=== PATIENT | female | born 1945 | race Caucasian/White ===

== ENCOUNTER → 2018-03-09 13:08 | Outpatient (CLI) | payer MEDICARE, OTHER, SELFPAY ==
--- NOTE | 2018-03-09 | DI.MRI.S_ITS ---
PROCEDURE: MR LUMBAR SPINE WO CON INDICATIONS: LUMBAR SPINE PAIN TECHNIQUE: Noncontrast sagittal T1 spin echo and T2 fast echo, sagittal STIR, axial T1 and T2 fast spin echo through the lumbar spine. In cases with scoliosis, additional coronal T2 fast spin echo may be performed. COMPARISON: [facility], MR, L-SPINE WITHOUT CONTRAST, 07/11/2016, 13:08. FINDINGS: Image quality: Excellent. Alignment and Curvature: Straightening of the normal lumbar lordosis. Bone Marrow: Marrow is of normal overall signal. No acute vertebral body compression fractures. Endplate degenerative signal changes present Spinal Cord: Conus medullaris terminates at the L2-L3 level. Visualized cord demonstrates normal signal and size. Paraspinous Soft Tissues: No paravertebral masses. T2 hyperintense presumed left renal cyst although this is technically nonspecific. T11-T12: Posterior disc bulge with mild canal narrowing. L1-L2: Facet arthropathy. No definite canal stenosis. No foraminal narrowing. L2-L3: Minimal broad-based posterior disc bulge and facet disease. Minimal canal narrowing. No foraminal stenosis. L3-L4: Broad-based posterior disc bulge and bilateral facet. Mild canal stenosis. Moderate left and mild right foraminal stenosis. No interval change L4-L5: Left paracentral disc extrusion (with superior extension to the level of the mid L4 vertebral body) which appears increased in size since the prior study, and bilateral facet disease. This appears to abut however not displace the left L5 nerve root. Mild to moderate left-sided canal narrowing has progressed slightly. Moderate bilateral foraminal stenoses. No interval change L5-S1: Broad-based posterior disc bulge and bilateral facet arthropathy and mild canal narrowing. Moderate left and severe right foraminal stenoses, grossly unchanged. IMPRESSION: Interval increase in L4-L5 left paracentral disc protrusion as detailed above. This appears to abut however not displace the left L5 nerve root. Please correlate to clinical exam findings. Otherwise, grossly unchanged examination since 07/11/16. Dictated by: Best Chaudhry M.D. on 03/09/2018 at 14:34 Approved by: Best Chaudhry M.D. on 03/09/2018 at 14:45
== END ==
PROVIDERS: Family Provider Internal Medicine; PCP Family Medicine; Visit Provider Physical Medicine & Rehabilitation Pain Medicine
DX: M54.5 Low back pain (principal); M51.26 Other intervertebral disc displacement, lumbar region
CPT/HCPCS: 72148

== ENCOUNTER 2019-03-27 17:20 | Emergency (ER) | payer OTHER, MEDICARE, SELFPAY ==
[2019-03-27 17:28] VITALS: PULSE 69; RESP 20; TEMP 36.4; O2SAT 98
[2019-03-27 17:32] VITALS: BP 159/59
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
[2019-03-27 20:13] VITALS: BP 148/72; PULSE 69; RESP 18; O2SAT 100
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
== END 2019-03-27 20:14 | disposition home or self-care (01) ==
PROVIDERS: Emergency Provider Nurse Practitioner Family; Family Provider Internal Medicine; PCP Family Medicine
DX: M25.561 Pain in right knee (principal); M25.562 Pain in left knee; S60.221A Contusion of right hand, initial encounter; V43.62XA Car passenger injured in collision with other type car in traffic accident, initial encounter
CPT/HCPCS: 73562; 99282; 99283

== ENCOUNTER → 2020-02-13 15:27 | Outpatient (CLI) | payer MEDICARE, OTHER, SELFPAY ==
--- NOTE | 2020-02-13 15:33 | DI.ECHO.S_ITS ---
[facility] [place] +---------+ [facility] +---------+ : : [address] : : : : [id number] : : : : Phone: [phone]+ Echocardiogram Report + + :Name: ELYSE WOOD Study Date: 02/13/2020 Height: 63 in : :[facility] Weight: 180 lb : : Gender: Female BSA: 1.8 m2 : :: 1945 Age: 74 yrs BP: 150/63 mmHg: :Reason For Study: Palpitations : : Performed By: Gisell Whitaker : :Referring: PUNEET LUNA A : + + Interpretation Summary Normal sinus rhythm. Normal LV size, wall thickness, wall motion and LV systolic function. EF is 55-60%. Moderate LA enlargement. Otherwise normal chamber sizes. No significant valvular abnormalities. No prior study available for comparison. Left Ventricle: The left ventricle is normal in size and wall thickness. The ejection fraction is estimated to be 55-60%. Right Ventricle: The right ventricle is normal in size and function. Atria: The left atrium is moderately dilated. The right atrium is normal in size. There is no Doppler evidence for an interatrial shunt. The atrial septum is aneurysmal. The interatrial septum bows toward right atrium consistent with elevated left atrial pressure. Mitral Valve: There is mild mitral annular calcification. The mitral valve is normal in structure and function. There is trace mitral regurgitation. Aortic Valve: The aortic valve is trileaflet. The aortic valve opens well. There is no aortic valve stenosis. No aortic regurgitation is present. Tricuspid Valve: The tricuspid valve is normal in structure and function. Pulmonary artery pressures cannot be estimated because of the lack of a measurable TR jet velocity but the IVC suggests a CVP of around 8 mmHg. There is mild tricuspid regurgitation. Pulmonic Valve: The pulmonic valve is not well seen, but is grossly normal. There is no pulmonic valvular regurgitation. Great Vessels: The aortic root is normal size. The dimensions of the ascending aorta are normal. The IVC is dilated (diameter is greater than 2.1 cm) yet it collapses greater than 50% with a sniff. This suggests a right atrial pressure of 8 mm Hg. Pericardium/ Pleura There is no pericardial effusion. There is no pleural effusion. MMode/2D Measurements & Calculations LVIDd: 5.4 cm LVOT diam: 2.0 cm LVIDs: 3.7 cm Ao root diam: 3.0 cm FS: 31.1 % asc Aorta Diam: 3.0 cm EPSS: 0.88 cm IVSd: 0.92 cm LVPWd: 0.86 cm LV pickard. diameter/BSA (cm/m^2): 2.9 LV sys. diameter/BSA (cm/m^2): 2.0 LA A2 area: 24.6 cm2 RA long axis: 5.6 cm LA A4 area: 24.2 cm2 RA area: 16.4 cm2 LA length (vol): 6.0 cm RA vol: 41.3 ml LA vol: 83.6 ml RA : 22.3 ml/m2 LA vol index: 45.2 ml/m2 IVC diam: 2.3 cm RVD1 (basal): 3.1 cm TAPSE: 2.2 cm Doppler Measurements & Calculations Ao V2 max: 146.9 cm/sec LVOT Max Kana: 103.5 cm/sec Ao V2 mean: 106.6 cm/sec LV V1 max P.3 mmHg Ao max P.6 mmHg LV V1 VTI: 27.9 cm Ao mean P.0 mmHg EASTON(I,D): 2.5 cm2 Ao V2 VTI: 36.9 cm EASTON(V,D): 2.3 cm2 sev ratio: 0.76 EASTON indexed to BSA (cm^2/m^2): 1.3 MV E max kana: 93.1 cm/sec PA V2 max: 83.1 cm/sec MV A max kana: 73.8 cm/sec PA V2 mean: 50.7 cm/sec MV E/A: 1.3 PA mean P.2 mmHg Med Peak E' Kana: 7.2 cm/sec E/E' med: 12.9 Lat Peak E' Kana: 8.4 cm/sec E/E' lat: 11.1 E/e' average: 12.0 MV dec time: 0.20 sec SV(LVOT): 92.0 ml Electronically signed by: Michelle Wade M.D. on Reading Physician:02/15/2020 03:28 PM
== END ==
PROVIDERS: Family Provider Internal Medicine; PCP Family Medicine; Referring Provider Family Medicine; Visit Provider Family Medicine
DX: I07.1 Rheumatic tricuspid insufficiency (principal); R00.2 Palpitations
CPT/HCPCS: 93306

== ENCOUNTER → 2020-03-09 10:00 | Outpatient (CLI) | payer MEDICARE, OTHER, SELFPAY ==
--- NOTE | 2020-03-09 | DI.RAD.S_ITS ---
PROCEDURE: FL BARIUM SWALLOW W SPEECH INDICATIONS: Dysphagia TECHNIQUE: Examination was conducted in conjunction with speech pathology per standard protocol. In the lateral projection, filming was performed of the patient swallowing. AP projection filming may also be performed with patient swallowing. COMPARISON: None. FINDINGS: Function: The oral preparatory phase appears normal, with proper containment. The subsequent oral propulsive phase, pharyngeal phase, and esophageal phase of swallowing also appear normal with all proffered substances. No laryngotracheal penetration or aspiration. No pathologic vallecular pooling. Morphology: No cricopharyngeal bar is identified. Note is made of degenerative disc disease with anterior projecting osteophytes from C4 through C7, mildly impinging on the immediately adjacent esophagus as a potential etiology of symptomatology. No cervical esophageal webs. No Zenker's diverticulum. No strictures. IMPRESSION: Anterior projecting osteophytes from C4-C7 do impinge on the posterior border of the esophagus, mildly. Please also refer to the dedicated speech therapy swallowing evaluation report which will be independently generated. Dictated by: Scott Saavedra M.D. on 03/09/2020 at 11:03 Approved by: Scott Saavedra M.D. on 03/09/2020 at 11:27
--- NOTE | 2020-03-09 14:17 | ST.SWALLOW ---
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 Mariah Woods Reason for Referral Dysphagia Setting Setting Outpatient Care Patient Information Identification Type Name Patient History Medical History: kidney failure, lupus, hyperparathryoidism Subjective Observations Alert, oriented x3. Patient complains of intermittent gagging with and without food, globus sensation onset ~3 months ago. Patient Positioning Position View Lateral Imaging Lateral View Textures Administered Trials Presented Thin Liquid via Spoon,Thin Liquid via Cup,Rosanky Liquid via Spoon,Rosanky Liquid via Cup,Honey Liquid via Spoon, Dysphagia Blenderized Textures ,Regular Textures Oral Phase Source: MBSIMP (TM) (C) Bolus Specific Scoring Grid Lip Closure No Impairment (WNL) Bolus Prep/Mastication No Impairment (WNL) Oral Residue No Impairment (WNL) Residue Clearing No Impairment (WNL) Additional Oral Phase Observations There was no labial escape of contrast. Tongue control during bolus hold resulted in posterior escape of less than half of the bolus with the initial teaspoon of thin liquid. Bolus prep and mastication demonstrated timely and efficient chewing and mashing. Lingual motion for bolus transport was brisk. There was complete oral clearance of barium with no oral residue observed in today 's study. Initiation of the pharyngeal swallow occurred as the bolus head was in the valleculae. Pharyngeal Phase Source: MBSIMP (TM) (C) Bolus Specific Scoring Grid Soft Palate Elevation No Impairment (WNL) Tongue Base Strength/Range of Motion No Impairment (WNL) Laryngeal Elevation Mild Impairment Anterior Hyoid Movement No Impairment (WNL) Epiglottic Range of Motion No Impairment (WNL) Laryngeal Vestibular Closure No Impairment (WNL) Pharyngeal Stripping Wave No Impairment (WNL) Additional Pharyngeal Phase Observations Soft palate elevation was complete. Laryngeal elevation was decreased, with partial superior movement of the thyroid cartilage/partial approximation of the arytenoids to the epiglottic petiole. Anterior hyoid excursion was complete. Epiglottic movement resulted in complete inversion. Laryngeal vestibular closure was complete without air/ contrast in the laryngeal vestibule. Neither penetration nor aspiration were observed in today's study. Pharyngeal stripping wave was present. Pharyngoesophageal segment opening demonstrated complete distension/ duration, without obstruction of flow. Tongue base retraction demonstrated no contrast or air between the retracted tongue base and the posterior pharyngeal wall. Pharyngeal residue was a collection of contrast within the vallecula. A/P View Esophageal Observations Esophageal Function Limited view in the lateral position. Clinical Impressions Findings Patient presents with functional swallow without identifiable cause of symptoms . Recommendations Diet Liquids Order Thin Diet Order Regular Medication Recommendation As Tolerated Aspiration Precautions Recommended Precautions Upright at 90 Degrees
== END ==
PROVIDERS: Family Provider Internal Medicine; PCP Family Medicine; Referring Provider Family Medicine; Visit Provider Family Medicine
DX: R13.10 Dysphagia, unspecified (principal)
CPT/HCPCS: 74230; 92611

== ENCOUNTER → 2020-09-07 10:12 | Outpatient (CLI) | payer MEDICARE, OTHER, SELFPAY ==
[2020-09-07 11:55] LABS: COVID19 -Nasal RAPID Negative (Negative)
== END ==
PROVIDERS: Family Provider Internal Medicine; PCP Family Medicine; Visit Provider Physician Assistant
DX: Z01.812 Encounter for preprocedural laboratory examination (principal); Z20.822 Contact with and (suspected) exposure to COVID-19
CPT/HCPCS: 87635; C9803

== ENCOUNTER 2020-09-08 07:46 | Day surgery (SDC) | payer MEDICARE, OTHER, SELFPAY ==
[2020-09-08] MEDS: PROPARACAINE 0.5% OPHTH SOL 2 DROPS EYE-OP (08:55)
[2020-09-08] MEDS: CATARACT EYE COMPOUND (10 DROPS/SYRINGE) 3 DROPS EYE-OP (08:55)
[2020-09-08 09:05] VITALS: BP 172/59; PULSE 56; RESP 16; TEMP 36.7; O2SAT 100; BMI 30.9
--- NOTE | 2020-09-08 09:47 | PM.PREOP ---
Pre-operative Note Interval Note History & Physical reviewed/Exam performed by Physician: Yes Changes to H&P: No
--- NOTE | 2020-09-08 09:47 | PM.OP.1 ---
Operative Date/Time/Diagnoses Pre-op diagnosis: Nuclear cataract right eye Procedure & Clinicians Procedure: Cataract Surgery Same procedure as scheduled: Yes Surgeon: Kings Menjivar Anesthesia Type: MAC +/- and Sedation Operative Notes Procedure in detail: Patient brought to the operating suite. Tetracaine drops placed in the right eye. Patient was prepped and draped in sterile manner. Wire lid speculum was placed in the eye. Betadine drops were placed on the eye. This was irrigated. Lidocaine jelly was placed on the eye. A paracentesis port was created with a side-port blade. 0.1 mL 1% preservative free lidocaine was injected into the anterior chamber. The anterior chamber was deepened with viscoelastic. 2.6 mm keratome was used to create a temporal clear corneal incision. Cystotome and Utrata forceps were used to create continuous tear capsulorrhexis. Balanced salt solution was used to hydro dissect the nucleus. The phacoemulsification handpiece was inserted and the nucleus was removed using the stop and chop technique. The irrigation aspiration handpiece was inserted and the remaining cortex was removed. Anterior chamber was deepened with viscoelastic. An Rosa [id number] intraocular lens with a power of 16.5 was injected into the capsular bag. Irrigation aspiration handpiece was inserted and the remaining viscoelastic was removed. Incision was hydrated with balanced salt solution and found to be leak free with pressure with Weck-Marina sponges. 0.1 mL Vigamox injected anterior chamber. 0.3 mL Kenalog 10 mg was injected subconjunctivally. Lid speculum was removed. The patient left the operating room in excellent condition. Complications: none Post-operative Condition: stable Disposition: same day surgery
[2020-09-08] MEDS: MOXIFLOXACIN INJ 5 MG/ML VIAL EYE-OP (10:10)
[2020-09-08] MEDS: CHONDROIDTIN/SOD HYALURONATE 1.05 ML SYRINGE INTRAOCULA (10:10)
[2020-09-08] MEDS: PHENYLEPHRINE/LIDOCAINE VIAL (OR) 0.2 ML EYE-OP (10:10)
[2020-09-08] MEDS: LIDOCAINE JELLY 2% 5 ML 1 APPLIC TOP (10:10)
[2020-09-08] MEDS: TETRACAINE 0.5% OPHTH DROPS 4 ML 2 DROPS EYE-OP (10:11)
[2020-09-08] MEDS: BALANCED SALT IRRIG SOLN NO.2 500 ML, EPINEPHrine 1 MG IRR (10:11)
[2020-09-08] MEDS: TRIAMCINOLONE 50 MG/5 ML VIAL INJ (10:11)
[2020-09-08 10:24] VITALS: BP 160/66; PULSE 55; RESP 16; TEMP 36.1; O2SAT 98
== END 2020-09-08 10:35 | disposition home or self-care (01) ==
PROVIDERS: Family Provider Internal Medicine; PCP Family Medicine; Referring Provider Family Medicine; Visit Provider Ophthalmology
PROC: (CPT 66984; principal; 2020-09-08 09:45)
DX: H25.11 Age-related nuclear cataract, right eye (principal); N18.6 End stage renal disease; Z99.2 Dependence on renal dialysis; I12.0 Hypertensive chronic kidney disease with stage 5 chronic kidney disease or end stage renal disease
CPT/HCPCS: 66984; J0171; J2250; J3010; J3301

== ENCOUNTER → 2020-09-21 13:28 | Outpatient (CLI) | payer MEDICARE, OTHER, SELFPAY ==
[2020-09-21 15:00] LABS: COVID19 -Nasal RAPID Negative (Negative)
== END ==
PROVIDERS: Family Provider Internal Medicine; PCP Family Medicine; Visit Provider Physician Assistant
DX: Z20.822 Contact with and (suspected) exposure to COVID-19 (principal)
CPT/HCPCS: 87635; C9803

== ENCOUNTER 2020-09-22 06:23 | Day surgery (SDC) | payer MEDICARE, OTHER, SELFPAY ==
[2020-09-22] MEDS: PROPARACAINE 0.5% OPHTH SOL 2 DROPS EYE-OP (07:11)
[2020-09-22 07:14] VITALS: BP 184/71; PULSE 60; RESP 12; TEMP 36.3; O2SAT 98; BMI 30.6
[2020-09-22] MEDS: CATARACT EYE COMPOUND (10 DROPS/SYRINGE) 3 DROPS EYE-OP (07:21)
--- NOTE | 2020-09-22 07:33 | P.OP_ITS ---
Operative Date/Time/Diagnoses Pre-op diagnosis: Nuclear Cataract Left eye Post-op diagnosis: same Procedure & Clinicians Same procedure as scheduled: Yes Surgeon: Kings Menjivar Anesthesia Type: MAC +/- and Sedation Operative Notes Procedure in detail: Patient brought to the operating suite. Tetracaine drops placed in the left eye. Patient was prepped and draped in sterile manner. Wire lid speculum was placed in the eye. Betadine drops were placed on the eye. This was irrigated. Lidocaine jelly was placed on the eye. A paracentesis port was created with a side-port blade. 0.1 mL 1% preservative free lidocaine was injected into the anterior chamber. The anterior chamber was deepened with viscoelastic. 2.6 mm keratome was used to create a temporal clear corneal incision. Cystotome and Utrata forceps were used to create continuous tear capsulorrhexis. Balanced salt solution was used to hydro dissect the nucleus. The phacoemulsification handpiece was inserted and the nucleus was removed using the stop and chop technique. The irrigation aspiration handpiece was inserted and the remaining cortex was removed. Anterior chamber was deepened with viscoe lastic. An Rosa ZCB00 intraocular lens with a power of 17.5 was injected into the capsular bag. Irrigation aspiration handpiece was inserted and the remaining viscoelastic was removed. Incision was hydrated with balanced salt solution and found to be leak free with pressure with Weck-Marina sponges. 0.1 mL Vigamox injected anterior chamber. 0.3 mL Kenalog 10 mg was injected subconjunctivally. Lid speculum was removed. The patient left the operating room in excellent condition. Complications: none Post-operative Condition: stable Disposition: same day surgery
--- NOTE | 2020-09-22 07:33 | PM.PREOP ---
Pre-operative Note Interval Note History & Physical reviewed/Exam performed by Physician: Yes Changes to H&P: No
[2020-09-22] MEDS: MOXIFLOXACIN INJ 5 MG/ML VIAL EYE-OP (08:04)
[2020-09-22] MEDS: LIDOCAINE JELLY 2% 5 ML 1 APPLIC TOP (08:04)
[2020-09-22] MEDS: CHONDROIDTIN/SOD HYALURONATE 1.05 ML SYRINGE INTRAOCULA (08:04)
[2020-09-22] MEDS: PHENYLEPHRINE/LIDOCAINE VIAL (OR) 0.2 ML EYE-OP (08:04)
[2020-09-22] MEDS: TETRACAINE 0.5% OPHTH DROPS 4 ML 2 DROPS EYE-OP (08:05)
[2020-09-22] MEDS: TRIAMCINOLONE 50 MG/5 ML VIAL INJ (08:05)
[2020-09-22] MEDS: BALANCED SALT IRRIG SOLN NO.2 500 ML, EPINEPHrine 1 MG IRR (08:06)
[2020-09-22 08:19] VITALS: BP 136/69; PULSE 53; RESP 16; TEMP 36.7; O2SAT 97
== END 2020-09-22 08:29 | disposition home or self-care (01) ==
PROVIDERS: Family Provider Internal Medicine; PCP Family Medicine; Referring Provider Ophthalmology; Visit Provider Ophthalmology
PROC: (CPT 66984; principal; 2020-09-22 07:45)
DX: H25.12 Age-related nuclear cataract, left eye (principal); I12.0 Hypertensive chronic kidney disease with stage 5 chronic kidney disease or end stage renal disease; N18.6 End stage renal disease; Z99.2 Dependence on renal dialysis
CPT/HCPCS: 66984; J0171; J2250; J3301

== ENCOUNTER 2021-11-10 19:36 | Emergency (ER) | payer MEDICARE, OTHER, SELFPAY ==
[2021-11-10] VITALS (9 sets, daily range): BP systolic 165–205; BP diastolic 69–78; PULSE 54–82; RESP 18; TEMP 36.4; O2SAT 96–98; BMI 26.1
[2021-11-10 20:36] LABS: Appearance Urine UA CLEAR; Bilirubin Urine UA NEGATIVE (NEGATIVE); Color Urine UA YELLOW; Glucose Urine UA NEGATIVE (Negative); Ketones Urine UA NEGATIVE (NEGATIVE); Leukocyte Esterase Urine UA NEGATIVE (NEGATIVE); Nitrite Urine UA NEGATIVE (Negative); Occult Blood Urine UA 2+ (Negative); Protein Urine UA 3+ (Negative); Urobilinogen Urine UA 0.2 E.U./dL (0.2)
[2021-11-10 20:37] LABS: pH Urine UA 7.5 (4.5-8.0)
[2021-11-10 20:38] LABS: Amorphous Sediment Urine 1+; Bacteria Urine Occasional (0-1); RBC Urine 5-10/HPF (0-5/HPF); Squamous Epithelial Cell Urine 1-5 /HPF (0-5/HPF); WBC Urine 1-5/HPF (0-5/HPF)
[2021-11-10 20:39] LABS: Culture Indicated Urine Specimen Cultured
--- NOTE | 2021-11-10 20:54 | DI.CT.S_ITS ---
PROCEDURE: CT KIDNEY URETER BLADDER (KUB) INDICATIONS: flank pain, hematuria TECHNIQUE: Axial sections were acquired from the lung bases to the pubic symphysis. Coronal and sagittal reformats were performed. For radiation dose reduction, the following was used: automated exposure control, adjustment of mA and/or kV according to patient size. COMPARISON: None. FINDINGS: Image quality: Excellent. Lung bases: Unremarkable. Heart: Mild cardiomegaly. URINARY: Kidneys and ureters: A low-density lesion in the interpolar region of the left kidney is most likely a cyst. A small hyperdense lesion at the superior pole of the right kidney may represent a proteinaceous or hemorrhagic cyst. No or ureteral calculus is seen. No hydronephrosis. Bladder: Bladder is decompressed, which limits evaluation. No bladder calculus. ABDOMEN: Liver: Unremarkable. Gallbladder: Status post cholecystectomy. Biliary ducts: Unremarkable. Pancreas: Unremarkable. Spleen: Unremarkable. Adrenal Glands: Unremarkable. Stomach and Bowel: Multiple diverticula are seen in the colon without acute inflammatory changes to suggest acute diverticulitis. No signs of bowel obstruction. Peritoneum: Trace free fluid in the pelvis is nonspecific. No pneumoperitoneum. Ventral Wall: Mild diffuse soft tissue anasarca. Abdominal Nodes: No enlarged retroperitoneal or mesenteric lymph nodes. Vessels: Aorta and inferior vena cava are normal in size. Mild aortic atherosclerotic calcifications. PELVIS: Pelvic Organs: Status post hysterectomy. Pelvic Nodes: Unremarkable. Miscellaneous: Small bilateral fat containing inguinal hernias. Bones: Postsurgical changes from right hip arthroplasty with associated metallic artifact. Generalized osteopenia. Degenerative changes are seen in the spine. IMPRESSION: 1. No renal or ureteral calculus or hydronephrosis. No acute abnormality is seen in the abdomen or pelvis. 2. Signs of volume overload including diffuse soft tissue anasarca and trace free fluid in the pelvis. 3. Cardiomegaly. Dictated by: Kraig Headley M.D. on 11/10/2021 at 22:42 Approved by: Kraig Headley M.D. on 11/10/2021 at 22:48
--- NOTE | 2021-11-10 22:06 | ED_ITS ---
HPI - Female Genitourinary General Chief complaint: Urogenital-Female Stated complaint: thinks possible UTI Time Seen by Provider: 11/10/21 19:49 Source: patient Mode of arrival: Wheelchair History of Present Illness HPI Narrative: 76F nonsmoker with end-stage renal disease that requires hemodialysis on Mondays, Wednesdays, and Fridays presents with her and a chief complaint of lower abdominal discomfort that has been present off and on for about the past week. She states it is largely in her lower pelvis min on occasion wraps around to her back. She denies any obvious provocation or palliation. She denies nausea or vomiting has no fever or chills. She states this feels similar to when she has urinary tract infections. She denies new medications were change in diet. She had a full run of dialysis earlier in the day Related Data Home Medications Medication Instructions Recorded Confirmed allopurinol 100 mg tablet 100 mg PO DAILY 09/08/20 09/22/20 aspirin 81 mg tablet 81 mg PO DAILY 09/08/20 09/22/20 carvedilol 3.125 mg tablet See Rx Instructions .ROUTE .COMPLEX 09/08/20 09/22/20 hydroxychloroquine 200 mg tablet 200 mg PO BID 09/08/20 09/22/20 lisinopril 5 mg tablet See Rx Instructions .ROUTE .COMPLEX 09/08/20 09/22/20 oxycodone 5 mg capsule 2.5 mg PO Q6H PRN 09/08/20 09/22/20 potassium chloride 10 mEq See Rx Instructions .ROUTE .COMPLEX 09/08/20 09/22/20 tablet,extended release (Klor-Con) Allergies Allergy/AdvReac Type Severity Reaction Status Date / Time codeine Allergy dizzy Verified 09/22/20 07:07 Review of Systems Review of Systems Narrative: GENERAL: Denies chills, fatigue, malaise, fever, sweats. HEENT: Denies sinus pain, ear pain, sore throat, difficulty swallowing, dizziness. RESPIRATORY: Denies dyspnea, cough, wheezing, hemoptysis, sputum. CARDIOVASCULAR: Denies chest pain, palpitations, orthopnea, edema, GASTROINTESTINAL: See HPI : Denies dysuria, frequency, incontinence, hematuria, urinary retention. MUSCULOSKELETAL: denies weakness, joint pain, or bony pain SKIN: Denies rash, skin lesions, or other NEUROLOGIC: Denies weakness, headache, numbness, change in speech, confusion, seizures, incoordination. PSYCHIATRIC: No concerning psychosocial issues. 12 point review of systems is negative except for those stated above Patient History Medical History Renal failure Surgical History H/O total hip arthroplasty H/O: hysterectomy Hx of tonsillectomy Substance Use Type: does not use Exam Narrative Exam Narrative: GENERAL: [76 year old patient appears stated age. Well-developed patient, in mild distress. HEAD: Atraumatic. Normocephalic. EYES: Pupils equal round and reactive. Extraocular motions intact. No scleral icterus. No injection or drainage. ENT: Nose without bleeding, purulent drainage. Throat without erythema, tonsi llar hypertrophy or exudate. Airway patent. NECK: Trachea midline. Non tender CARDIOVASCULAR: Regular rate and rhythm without murmurs, gallops, or rubs. RESPIRATORY: Clear to auscultation. Breath sounds equal bilaterally. No wheezes, rales, or rhonchi. GASTROINTESTINAL: Abdomen soft, mild lower abdominal tenderness, nondistended. EXTREMITIES: No edema or joint tenderness. Left upper extremity fistula with palpable thrill BACK: Nontender without deformity or crepitance. No flank tenderness. NEURO: AOx3. SKIN: No rash or erythema of visible areas Initial Vital Signs Initial Vital Signs: Vital Signs Temperature 97.6 F 11/10/21 19:52 Pulse Rate 59 L 11/10/21 19:52 Respiratory Rate 18 11/10/21 19:52 Blood Pressure 205/77 H 11/10/21 19:52 Pulse Oximetry 98 11/10/21 19:52 Course Course Course Narrative: Urine obtained and shows no sign of infection, only blood. Due to concern for kidney stone as well as lack of ability to use IV contrast the patient received a CT KUB which had no significant findings. I had an extensive discussion with the patient and her at the bedside and we elected to order labs for completeness sake. These labs were unremarkable and largely at her baseline. Given her episodic lower abdominal pain with on and off changes in bowel habits including loose stools raises suspicion of the possibility of enteritis. She has had no recent travel, antibiotics, exposure to bad foods and has had no bowel movements here. The likelihood of an infectious diarrhea which would require specific intervention such as antibiotic is unlikely. She and event given extensive return precautions and questions have been answered to their apparent satisfaction Orders Ordered: ED Orders 11/10/21 23:19 Complete Blood Count AUTO DIFF Stat Comprehensive Metabolic Panel Stat Vital Signs Vital signs: Vital Signs - 8 hr 11/11/21 00:10 Pulse Rate 57 L Respiratory Rate 18 Blood Pressure 196/79 H Pulse Oximetry 96 MDM - Female Genitourinary Lab Data Result diagrams: 11/10/21 23:19 11/10/21 23:19 Labs: Lab Results 11/10/21 11/10/21 11/10/21 Range/Units 19:40 23:19 23:19 WBC 3.4 L (4.5-11.0) X10^3/uL RBC 3.13 L (4.0-5.2) X10^6/uL Hgb 10.6 L (12.0-16.0) g/dL Hct 31.1 L (36-46) % MCV 99.1 (80-100) fL MCH 33.8 (26-34) PG MCHC 34.1 (30-36) % RDW 13.9 (11.6-14.8) % Plt Count 65 L (150-400) X10^3/uL Neut % (Auto) 65.1 (50-75) % Lymph % (Auto) 21.8 L (25-40) % [facility] % (Auto) 8.8 (3-14) % Eos % (Auto) 3.1 (2-4) % Baso % (Auto) 1.2 (0-2) % Neut # (Auto) 2200 (8894-6499) /uL Lymph # (Auto) 700 L (0776-2546) /uL [facility] # (Auto) 300 (0-900) /uL Eos # (Auto) 100 (0-450) /uL Baso # (Auto) 0 (0-100) /uL Sodium 132 L (137-145) mmol/L Potassium 4.2 (3.4-5.1) mmol/L Chloride 95 L (98-107) mmol/L Carbon Dioxide 34 H (22-32) mmol/L BUN 21 H (7-17) mg/dL Creatinine 1.87 H (0.52-1.04) mg/dL Estimated GFR 26.2 L (>60) mL/min BUN/Creatinine Ratio 11.2 (6-22) Glucose 112 H (80-110) mg/dL Calcium 9.1 (8.4-10.2) mg/dL Total Bilirubin 0.7 (0.2-1.3) mg/dL AST 24 (14-36) IU/L ALT 17 (<35) IU/L Alkaline Phosphatase 101 (38-126) U/L Total Protein 6.6 (6.3-8.2) g/dL Albumin 3.9 (3.5-5.0) g/dL Globulin 2.7 (1.7-4.1) g/dL Albumin/Globulin Ratio 1.4 (1.0-2.8) Urine Color Yellow Urine Appearance Clear Urine pH 7.5 (4.5-8.0) Ur Specific [place] 1.020 (1.000-1.035) Urine Protein 3+ H (Negative) Urine Glucose (UA) Negative (Negative) g/dL Urine Ketones Negative (NEGATIVE) Urine Occult Blood 2+ H (Negative) Urine Nitrate Negative (Negative) Urine Bilirubin Negative (NEGATIVE) Urine Urobilinogen 0.2 (0.2) E.U./dL Ur Leukocyte Esterase Negative (NEGATIVE) Urine RBC 5-10/hpf H (0-5/HPF) Urine WBC 1-5/hpf (0-5/HPF) Ur Squamous Epith Cells 1-5 /hpf (0-5/HPF) Amorphous Sediment 1+ Urine Bacteria Occasional (0-1) (None) Ur Culture Indicated? Specimen cultured Imaging Data CT scan - abdomen/pelvis: Radiologist's Impression: Launch?[place] [address] CT Scan Report Signed Patient: Arin Esteban MR#: [id number] : 1945 Acct:[id number] Age/Sex: 76 / F Date of Service: 11/10/21 Loc: Accession Number: [id number] ?? Procedure: CT kidney ureter bladder (KUB) Ordering Provider: Sarthak Saenz D.O. PROCEDURE:? CT KIDNEY URETER BLADDER (KUB) ? INDICATIONS:? flank pain, hematuria ? TECHNIQUE:? Axial sections were acquired from the lung bases to the pubic symphysis.? Coronal and sagittal reformats were performed.? For radiation dose reduction, the following was used: ?automated exposure control, adjustment of mA and/or kV according to patient size.? ? COMPARISON:? None. ? FINDINGS:? Image quality:? Excellent.? ? Lung bases:? Unremarkable.? ? Heart:? Mild cardiomegaly. ? URINARY: Kidneys and ureters:? A low-density lesion in the interpolar region of the left kidney is most likely a cyst.? A small hyperdense lesion at the superior pole of the right kidney may represent a proteinaceous or hemorrhagic cyst.? No or ureteral calculus is seen.? No hydronephrosis. ? Bladder:? Bladder is decompressed, which limits evaluation.? No bladder calculus. ? ABDOMEN: Liver:? Unremarkable.? ? Gallbladder:? Status post cholecystectomy. Biliary ducts:? Unremarkable.? ? Pancreas:? Unremarkable.? ? Spleen:? Unremarkable.? ? Adrenal Glands:? Unremarkable.? ? ? Stomach and Bowel:? Multiple diverticula are seen in the colon without acute inflammatory changes to suggest acute diverticulitis.? No signs of bowel obstruction. Peritoneum:? Trace free fluid in the pelvis is nonspecific.? No pneumoperitoneum. ? Ventral Wall:? Mild diffuse soft tissue anasarca. Abdominal Nodes:? No enlarged retroperitoneal or mesenteric lymph nodes.? Vessels:? Aorta and inferior vena cava are normal in size.? Mild aortic athe rosclerotic calcifications. ? PELVIS: Pelvic Organs:? Status post hysterectomy.? ? Pelvic Nodes: Unremarkable. Miscellaneous:? Small bilateral fat containing inguinal hernias. ? Bones:? Postsurgical changes from right hip arthroplasty with associated metallic artifact.? Generalized osteopenia.? Degenerative changes are seen in the spine. ? IMPRESSION:? 1. No renal or ureteral calculus or hydronephrosis.? No acute abnormality is seen in the abdomen or pelvis. 2. Signs of volume overload including diffuse soft tissue anasarca and trace free fluid in the pelvis. 3. Cardiomegaly. ? ? Dictated by: Kraig Headley M.D. on 11/10/2021 at 22:42 ? ? Approved by: Kraig Headley M.D. on 11/10/2021 at 22:48 ? Discharge Plan Departure Patient Disposition: Home Clinical Impression: Abdominal pain Instructions: DI for Abdominal Pain-Adult Activity Restrictions/Additional Instructions: *You have been diagnosed with [abdominal pain]. As we discussed, your history and physical exam are very reassuring and there is no evidence of urine infection, kidney stone, bowel obstruction, diverticulitis or other significant abnormality which would require a specific intervention *What to do: *Please continue to take your regular medications as directed. [ ] New medication prescriptions sent to your pharmacy: [ ] [ ] New medication written as a paper prescription [ ] No new medications given *Please follow up with your primary care provider in 2-3 days, call for an appointment. Let them know you were seen in the Emergency Department and that we ask that you be seen in follow up. We will electronically transmit a record of today's note if your PCP is in our system *Please consider a clear liquid diet and then advance as tolerated. *If you do not have a primary care provider please contact the [facility] Resource line at [phone]. They will ask some questions about your medical history and help get you set up with a doctor in the community. *Return to Emergency Department if you should have any new, worsening or concerning symptoms, such as [fever greater than 101 F, shaking chills, worsening pain, persistent vomiting or other bothersome symptoms] Prescriptions: No Action potassium chloride [Klor-Con 10] 10 mEq Tablet Extended Release See Rx Instructions .ROUTE .COMPLEX 0RF Rx Instructions: states takes 0.5 tablet BID takes prn when she feels her potasium is low allopurinol 100 mg Tablet 100 mg PO DAILY 0RF carvedilol 3.125 mg Tablet See Rx Instructions .ROUTE .COMPLEX 0RF Rx Instructions: does not know dosage oxycodone 5 mg Capsule 2.5 mg PO Q6H PRN (Reason: Pain (Scale Score 1-3)) 0RF aspirin 81 mg Tablet 81 mg PO DAILY 0RF lisinopril 5 mg Tablet See Rx Instructions .ROUTE .COMPLEX 0RF Rx Instructions: does not know dosage hydroxychloroquine 200 mg Tablet 200 mg PO BID 0RF Referrals: Ray Woods, [Primary Care Provider] -
[2021-11-10 23:38] LABS: Add Manual Diff / Slide Review NO; Basophils Absolute Auto 0 /uL (0-100); Basophils Percent Auto 1.2 % (0-2); Eosinophils Absolute Auto 100 /uL (0-450); Eosinophils Percent Auto 3.1 % (2-4); Hematocrit 31.1 % (36-46); Hemoglobin 10.6 g/dL (12.0-16.0); Lymphocytes Absolute Auto 700 /uL (1100-4500); Lymphocytes Percent Auto 21.8 % (25-40); Mean Corpuscular HGB Conc 34.1 % (30-36); Mean Corpuscular Hemoglobin 33.8 PG (26-34); Mean Corpuscular Volume 99.1 fL (80-100); Monocytes Absolute Auto 300 /uL (0-900); Monocytes Percent Auto 8.8 % (3-14); Neutrophils Absolute Auto 2200 /uL (1500-7000); Neutrophils Percent Auto 65.1 % (50-75); Red Blood Cell Count 3.13 X10^6/uL (4.0-5.2); Red Cell Distribution Width 13.9 % (11.6-14.8); White Blood Cell Count 3.4 X10^3/uL (4.5-11.0)
[2021-11-10 23:39] LABS: Platelet Count 65 X10^3/uL (150-400)
[2021-11-10 23:44] LABS: Alanine Aminotransferase 17 IU/L (<35); Albumin 3.9 g/dL (3.5-5.0); Albumin Globulin Ratio 1.4 (1.0-2.8); Alkaline Phosphatase 101 U/L (38-126); Aspartate Aminotransferase 24 IU/L (14-36); BUN Creatinine Ratio 11.2 (6-22); Bilirubin Total 0.7 mg/dL (0.2-1.3); Blood Urea Nitrogen 21 mg/dL (7-17); Calcium 9.1 mg/dL (8.4-10.2); Carbon Dioxide 34 mmol/L (22-32); Chloride 95 mmol/L (98-107); Estimated Glomerular Filt Rate 26.2 mL/min (>60); Globulin 2.7 g/dL (1.7-4.1); Glucose 112 mg/dL (80-110); HEMOLYSIS < 15 (0-50); Potassium 4.2 mmol/L (3.4-5.1); Sodium 132 mmol/L (137-145); Total Protein 6.6 g/dL (6.3-8.2)
[2021-11-11 00:10] VITALS: BP 196/79; PULSE 57; RESP 18; O2SAT 96
== END 2021-11-11 00:11 | disposition home or self-care (01) ==
PROVIDERS: Emergency Provider Emergency Medicine; Family Provider Internal Medicine; PCP Family Medicine
DX: R10.30 Lower abdominal pain, unspecified (principal)
CPT/HCPCS: 36415; 74176; 80053; 81001; 85025; 87086; 99283; 99284

== ENCOUNTER 2024-03-19 14:48 | Emergency (ER) | payer MEDICARE, OTHER, SELFPAY ==
[2024-03-19] VITALS (35 sets, daily range): BP systolic 131–230; BP diastolic 56–95; PULSE 51–78; RESP 15–24; TEMP 37.1; O2SAT 91–99; BMI 23.1
--- NOTE | 2024-03-19 15:58 | DI.RAD.S_ITS ---
PROCEDURE: XR CHEST 1V INDICATIONS: chest pain TECHNIQUE: One view of the chest was acquired. COMPARISON: None. FINDINGS: Surgical changes and devices: Left axillary vascular stent. Lungs and pleura: Diffuse thickening of the interstitial markings. Small retrocardiac consolidation. Possible trace right pleural effusion. No pneumothorax. Mediastinum: Mild, stable cardiomegaly. No central vascular prominence. Bones and chest wall: No suspicious bony lesions. Degenerative changes in the right shoulder. Overlying soft tissues appear unremarkable. IMPRESSION: Small retrocardiac opacity and diffuse, recurrent interstitial thickening may indicate pulmonary edema in the setting of cardiomegaly. Consider CHF or volume overload. Possible trace right pleural effusion. Dictated by: Caity Pryor M.D. on 03/19/2024 at 17:16 Approved by: Caity Pryor M.D. on 03/19/2024 at 17:17
--- NOTE | 2024-03-19 16:10 | EKG_ITS ---
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
--- NOTE | 2024-03-19 16:19 | PC.NURSE ---
Pt denies chest pain, denies vision changes, denies any current headaches, denies lightheadedness and denies dizziness. Pt had dialysis yesterday and was told to go to ED for high blood pressure.
--- NOTE | 2024-03-19 16:23 | DI.CT.S_ITS ---
PROCEDURE: CT HEAD/BRAIN WO CON INDICATIONS: High blood pressure following dialysis. Headache. TECHNIQUE: Noncontrast 4.5 mm thick angled axial sections acquired from the foramen magnum to the vertex, with coronal and sagittal reformats. For radiation dose reduction, the following was used: automated exposure control, adjustment of mA and/or kV according to patient size. COMPARISON: None. FINDINGS: Image quality: Diagnostic. CSF spaces: Basal cisterns are patent. No extra-axial fluid collections. The ventricles are symmetric in size and shape. Brain: No intracranial bleeds or masses. There is cerebral volume loss for age, with resultant ventricular and sulcal prominence. There are periventricular and deep white matter chronic small vessel ischemic changes. There is intracranial internal carotid artery atherosclerosis. Skull and face: Calvarium and visualized facial bones appear intact, without suspicious lesions. Sinuses: Visualized sinuses and mastoids are clear. IMPRESSION: No acute intracranial pathology. Dictated by: Estefany Zepeda MD, PhD on 03/19/2024 at 16:43 Approved by: Estefany Zepeda MD, PhD on 03/19/2024 at 16:44
[2024-03-19 16:39] LABS: Add Manual Diff / Slide Review NO; Basophils Absolute Auto 0 /uL (0-100); Basophils Percent Auto 1.7 % (0-2); Eosinophils Absolute Auto 0 /uL (0-450); Eosinophils Percent Auto 0.1 % (2-4); Hematocrit 36.3 % (36-46); Hemoglobin 12.1 g/dL (12.0-16.0); Lymphocytes Absolute Auto 500 /uL (1100-4500); Lymphocytes Percent Auto 15.4 % (25-40); Mean Corpuscular HGB Conc 33.4 % (30-36); Mean Corpuscular Hemoglobin 33.7 PG (26-34); Mean Corpuscular Volume 100.8 fL (80-100); Monocytes Absolute Auto 300 /uL (0-900); Monocytes Percent Auto 9.5 % (3-14); Neutrophils Absolute Auto 2200 /uL (1500-7000); Neutrophils Percent Auto 73.3 % (50-75); Platelet Count 75 X10^3/uL (150-400); Red Blood Cell Count 3.59 X10^6/uL (4.0-5.2); Red Cell Distribution Width 14.7 % (11.6-14.8)
[2024-03-19 16:45] LABS: INR 1.1 (0.9-1.3); Prothrombin Time 12.6 SECONDS (9.4-12.5)
[2024-03-19 16:48] LABS: PTT Partial Thromboplastin Tim 38 SECONDS (25.1-36.5)
--- NOTE | 2024-03-19 16:48 | PC.NURSE ---
Pt has excess skin in RIGHT upper arm. Reports having lost 110 pounds in the last 4 years.
[2024-03-19 16:52] LABS: Alanine Aminotransferase 19 IU/L (<35); Albumin 4.3 g/dL (3.5-5.0); Albumin Globulin Ratio 1.7 (1.0-2.8); Alkaline Phosphatase 97 U/L (38-126); Aspartate Aminotransferase 31 IU/L (14-36); BUN Creatinine Ratio 9.5 (6-22); Bilirubin Total 0.8 mg/dL (0.2-1.3); Blood Urea Nitrogen 26 mg/dL (7-17); Calcium 9.9 mg/dL (8.4-10.2); Carbon Dioxide 31 mmol/L (22-32); Chloride 96 mmol/L (98-107); Creatine Kinase 110 U/L (30-135); Estimated Glomerular Filt Rate 17 mL/min (>60); Globulin 2.5 g/dL (1.7-4.1); Glucose 100 mg/dL (80-110); HEMOLYSIS < 15 (0-50); Lipase 39 U/L (23-300); Magnesium 2.1 mg/dL (1.6-2.3); Potassium 3.8 mmol/L (3.4-5.1); Sodium 134 mmol/L (137-145); Total Protein 6.8 g/dL (6.3-8.2)
[2024-03-19 17:03] LABS: NT-proBNP (BNP-Adult 18+) 24900 pg/mL (<450); Troponin I 0.032 ng/mL (0.01-0.034)
--- NOTE | 2024-03-19 17:04 | ED_ITS ---
HPI - General Adult <Nathaly Guerrero DO - Last Filed: 03/20/24 07:10> General Chief complaint: Hypertension Stated complaint: HBP after dialysis Time Seen by Provider: 03/19/24 17:03 Source: patient Mode of arrival: Family Vehicle History of Present Illness HPI narrative: 78-year-old female with history of dialysis, Monday who arrives for elevation for hypertension. Patient was at dialysis yesterday was hypertensive post dialysis and recommended to be evaluated in the emergency department. Patient states she has had her regular dialysis no shortened episode she states she is below her dry weight. She states she has had elevated blood pressure for the entire week. She states they have given her extra carvedilol at her appointments. She states that they increased her clonidine from 1 tablet twice daily to 2 tablets twice daily in the past day. Patient states she has not had any other medication changes recently. She notes she was on any medications until after she had RSV at [facility] and hospitalized for 11 days. She went to [place] emergency department yesterday but left without being seen. She is on multiple medications for hypertension. Patient denies any symptoms currently. No headache, no chest pain, no shortness of breath, no nausea or vomiting, no other GI or urinary symptoms. Patient states she does make urine urinates approximately 6 times daily. No numbness tingling or weakness. Her legs are little bit swollen she notes a little bit worse than they typically are. Patient states she has been on antihypertensives 1977. She was left upper extremity fistula. No tobacco, alcohol or recreational drugs. Dr. Reed is her target aircraft controller through [facility]. Dr. Stafford is her primary care on [facility]. Related Data Home Medications Medication Instructions Recorded Confirmed allopurinol 100 mg tablet 100 mg PO DAILY 09/08/20 09/22/20 aspirin 81 mg tablet 81 mg PO DAILY 09/08/20 09/22/20 carvedilol 3.125 mg tablet See Rx Instructions .Route .COMPLEX 09/08/20 09/22/20 hydroxychloroquine 200 mg tablet 200 mg PO BID 09/08/20 09/22/20 lisinopril 5 mg tablet See Rx Instructions .Route .COMPLEX 09/08/20 09/22/20 oxycodone 5 mg capsule 2.5 mg PO Q6H PRN Pain (Scale 09/08/20 09/22/20 Score 1-3) potassium chloride 10 mEq See Rx Instructions .Route .COMPLEX 09/08/20 09/22/20 tablet,extended release (Klor-Con) Allergies Allergy/AdvReac Type Severity Reaction Status Date / Time codeine Allergy dizzy Verified 09/22/20 07:07 Review of Systems <Nathaly Guerrero DO - Last Filed: 03/20/24 07:10> Review of Systems ROS Unobtainable: All systems reviewed & are unremarkable except as noted in HPI and below Patient History <Nathaly Guerrero DO - Last Filed: 03/20/24 07:10> Medical History Renal failure Surgical History H/O total hip arthroplasty Hx of tonsillectomy H/O: hysterectomy Social History marital status: household members: spouse Smoking Status: Never smoker alcohol intake: never Smoking Status: Never smoker Substance Use Type: does not use Exam <Nathayl Guerrero DO - Last Filed: 03/20/24 07:10> Narrative Exam Narrative: GEN: well nourished, well appearing female, alert and oriented x 3, patient appears to be in mild distress. HEENT: Atraumatic, pupils are equal round reactive to light, extraocular movements are intact, nares are clear, there is no conjunctival pallor. Facial droop. HEART: Regular rate and rhythm without murmur, clicks, rubs. Mild bilateral lower extremity edema LUNGS:Lungs clear to auscultation, no wheezes, rales, crackles, chest moves symmetrically, no tachypnea accessory muscle use ABD:bowel sounds normal, soft, non-tender, no guarding, rebound, rigidity, no masses noted, no hepatosplenomegaly :No CVA tenderness MSCL: Non-tender, no muscle atrophy, muscles strength 5/5 upper and lower extremities, full range of motion, normal gait. Patient has a fistula in her left upper extremity. NEURO:CN 2-12 intact, sensation normal. Initial Vital Signs Initial Vital Signs: Vital Signs Temperature 98.8 F 03/19/24 15:25 Pulse Rate 54 L 03/19/24 15:25 Respiratory Rate 16 03/19/24 15:25 Blood Pressure 227/94 H 03/19/24 15:25 Pulse Oximetry 98 03/19/24 15:25 Oxygen Delivery Method Room Air 03/19/24 15:25 <Zeny Lazo MD - Last Filed: 03/19/24 23:28> Initial Vital Signs Initial Vital Signs: Vital Signs Temperature 98.8 F 03/19/24 15:25 Pulse Rate 54 L 03/19/24 15:25 Respiratory Rate 16 03/19/24 15:25 Blood Pressure 227/94 H 03/19/24 15:25 Pulse Oximetry 98 03/19/24 15:25 Oxygen Delivery Method Room Air 03/19/24 15:25 Course <Nathaly Guerrero DO - Last Filed: 03/20/24 07:10> Orders Ordered: Discontinued Medications Hydralazine HCl (Hydralazine 20 Mg/Ml Vial) 10 mg IV NOW ONE Stop: 03/19/24 17:32 Last Admin: 03/19/24 17:50 Dose: 10 mg Documented By: RADHA Nicardipine HCl 25 mg/ Sodium (Chloride) 250 mls @ 50 mls/hr IV TITRATE [facility]; Protocol Last Titration: 03/19/24 20:14 Dose: 2.5 mg/hr, 25 mls/hr Documented By: Titration: 03/19/24 20:03 Dose: 3 mg/hr, 30 mls/hr Documented By: Admin: 03/19/24 19:24 Dose: 5 mg/hr, 50 mls/hr Documented By: FRANCIA Oxycodone HCl (Oxycodone Ir 5 Mg Tablet) 2.5 mg PO NOW ONE Stop: 03/19/24 19:30 Last Admin: 03/19/24 20:02 Dose: 2.5 mg Documented By: FRANCIA Vital Signs Vital signs: Vital Signs - 8 hr 03/19/24 15:41 03/19/24 16:00 03/19/24 16:03 Pulse Rate 61 56 L Respiratory Rate 15 Blood Pressure 224/93 H Pulse Oximetry 96 97 Oxygen Delivery Method 03/19/24 16:03 03/19/24 16:30 03/19/24 16:38 Pulse Rate 57 L 61 57 L Respiratory Rate 15 16 Blood Pressure Pulse Oximetry 94 97 98 Oxygen Delivery Method Room Air 03/19/24 16:41 03/19/24 16:41 03/19/24 17:00 Pulse Rate 56 L 58 L Respiratory Rate 20 21 Blood Pressure 230/95 H 220/70 H Pulse Oximetry 98 95 Oxygen Delivery Method 03/19/24 17:30 03/19/24 17:50 03/19/24 17:55 Pulse Rate 55 L 59 L 59 L Respiratory Rate 16 18 Blood Pressure 230/82 H 230/82 H Pulse Oximetry 93 96 Oxygen Delivery Method Room Air Room Air 03/19/24 18:00 03/19/24 18:11 03/19/24 18:30 Pulse Rate 52 L 53 L Respiratory Rate 19 Blood Pressure 230/80 H Pulse Oximetry 97 92 Oxygen Delivery Method Room Air 03/19/24 18:38 03/19/24 18:39 03/19/24 19:00 Pulse Rate 58 L 56 L Respiratory Rate 24 Blood Pressure 228/78 H 228/78 H 203/82 H Pulse Oximetry 94 Oxygen Delivery Method 03/19/24 19:02 03/19/24 19:30 03/19/24 19:45 Pulse Rate 58 L 59 L Respiratory Rate 20 18 Blood Pressure 210/76 H 192/58 H 182/56 H Pulse Oximetry 95 96 Oxygen Delivery Method Room Air 03/19/24 19:59 03/19/24 19:59 03/19/24 20:00 Pulse Rate 61 Respiratory Rate 19 Blood Pressure 190/85 H 178/76 H Pulse Oximetry 94 Oxygen Delivery Method 03/19/24 20:00 03/19/24 20:05 03/19/24 20:05 Pulse Rate 59 L 56 L Respiratory Rate 19 18 Blood Pressure 165/72 H Pulse Oximetry 95 96 Oxygen Delivery Method 03/19/24 20:10 03/19/24 20:10 03/19/24 20:15 Pulse Rate 56 L Respiratory Rate 22 Blood Pressure 162/73 H 156/70 H Pulse Oximetry 95 Oxygen Delivery Method Room Air 03/19/24 20:15 03/19/24 20:20 03/19/24 20:20 Pulse Rate 54 L 55 L Respiratory Rate 16 16 Blood Pressure 164/67 H Pulse Oximetry 92 92 Oxygen Delivery Method Room Air 03/19/24 20:25 03/19/24 20:25 03/19/24 20:30 Pulse Rate 55 L 53 L Respiratory Rate 15 21 Blood Pressure 166/69 H Pulse Oximetry 91 96 Oxygen Delivery Method 03/19/24 20:31 03/19/24 20:31 03/19/24 20:45 Pulse Rate 52 L Respiratory Rate 20 Blood Pressure 171/72 H 166/70 H Pulse Oximetry 97 Oxygen Delivery Method Room Air 03/19/24 20:45 03/19/24 21:00 03/19/24 21:01 Pulse Rate 51 L 53 L Respiratory Rate 16 16 Blood Pressure 159/70 H Pulse Oximetry 99 99 Oxygen Delivery Method 03/19/24 21:01 03/19/24 21:15 03/19/24 21:15 Pulse Rate 53 L 55 L Respiratory Rate 17 24 Blood Pressure 164/68 H Pulse Oximetry 99 94 Oxygen Delivery Method Room Air Room Air 03/19/24 21:30 03/19/24 21:30 03/19/24 21:45 Pulse Rate 55 L 78 Respiratory Rate 15 Blood Pressure 156/72 H Pulse Oximetry 97 Oxygen Delivery Method Room Air 03/19/24 21:45 Pulse Rate Respiratory Rate Blood Pressure 131/59 L Pulse Oximetry Oxygen Delivery Method <Zeny Lazo MD - Last Filed: 03/19/24 23:28> Orders Ordered: Discontinued Medications Hydralazine HCl (Hydralazine 20 Mg/Ml Vial) 10 mg IV NOW ONE Stop: 03/19/24 17:32 Last Admin: 03/19/24 17:50 Dose: 10 mg Documented By: RADHA Nicardipine HCl 25 mg/ Sodium (Chloride) 250 mls @ 50 mls/hr IV TITRATE [facility]; Protocol Last Titration: 03/19/24 20:14 Dose: 2.5 mg/hr, 25 mls/hr Documented By: Titration: 03/19/24 20:03 Dose: 3 mg/hr, 30 mls/hr Documented By: Admin: 03/19/24 19:24 Dose: 5 mg/hr, 50 mls/hr Documented By: FRANCIA Oxycodone HCl (Oxycodone Ir 5 Mg Tablet) 2.5 mg PO NOW ONE Stop: 03/19/24 19:30 Last Admin: 03/19/24 20:02 Dose: 2.5 mg Documented By: FRANCIA Vital Signs Vital signs: Vital Signs - 8 hr 03/19/24 15:41 03/19/24 16:00 03/19/24 16:03 Pulse Rate 61 56 L Respiratory Rate 15 Blood Pressure 224/93 H Pulse Oximetry 96 97 Oxygen Delivery Method 03/19/24 16:03 03/19/24 16:30 03/19/24 16:38 Pulse Rate 57 L 61 57 L Respiratory Rate 15 16 Blood Pressure Pulse Oximetry 94 97 98 Oxygen Delivery Method Room Air 03/19/24 16:41 03/19/24 16:41 03/19/24 17:00 Pulse Rate 56 L 58 L Respiratory Rate 20 21 Blood Pressure 230/95 H 220/70 H Pulse Oximetry 98 95 Oxygen Delivery Method 03/19/24 17:30 03/19/24 17:50 03/19/24 17:55 Pulse Rate 55 L 59 L 59 L Respiratory Rate 16 18 Blood Pressure 230/82 H 230/82 H Pulse Oximetry 93 96 Oxygen Delivery Method Room Air Room Air 03/19/24 18:00 03/19/24 18:11 03/19/24 18:30 Pulse Rate 52 L 53 L Respiratory Rate 19 Blood Pressure 230/80 H Pulse Oximetry 97 92 Oxygen Delivery Method Room Air 03/19/24 18:38 03/19/24 18:39 03/19/24 19:00 Pulse Rate 58 L 56 L Respiratory Rate 24 Blood Pressure 228/78 H 228/78 H 203/82 H Pulse Oximetry 94 Oxygen Delivery Method 03/19/24 19:02 03/19/24 19:30 03/19/24 19:45 Pulse Rate 58 L 59 L Respiratory Rate 20 18 Blood Pressure 210/76 H 192/58 H 182/56 H Pulse Oximetry 95 96 Oxygen Delivery Method Room Air 03/19/24 19:59 03/19/24 19:59 03/19/24 20:00 Pulse Rate 61 Respiratory Rate 19 Blood Pressure 190/85 H 178/76 H Pulse Oximetry 94 Oxygen Delivery Method 03/19/24 20:00 03/19/24 20:05 03/19/24 20:05 Pulse Rate 59 L 56 L Respiratory Rate 19 18 Blood Pressure 165/72 H Pulse Oximetry 95 96 Oxygen Delivery Method 03/19/24 20:10 03/19/24 20:10 03/19/24 20:15 Pulse Rate 56 L Respiratory Rate 22 Blood Pressure 162/73 H 156/70 H Pulse Oximetry 95 Oxygen Delivery Method Room Air 03/19/24 20:15 03/19/24 20:20 03/19/24 20:20 Pulse Rate 54 L 55 L Respiratory Rate 16 16 Blood Pressure 164/67 H Pulse Oximetry 92 92 Oxygen Delivery Method Room Air 03/19/24 20:25 03/19/24 20:25 03/19/24 20:30 Pulse Rate 55 L 53 L Respiratory Rate 15 21 Blood Pressure 166/69 H Pulse Oximetry 91 96 Oxygen Delivery Method 03/19/24 20:31 03/19/24 20:31 03/19/24 20:45 Pulse Rate 52 L Respiratory Rate 20 Blood Pressure 171/72 H 166/70 H Pulse Oximetry 97 Oxygen Delivery Method Room Air 03/19/24 20:45 03/19/24 21:00 03/19/24 21:01 Pulse Rate 51 L 53 L Respiratory Rate 16 16 Blood Pressure 159/70 H Pulse Oximetry 99 99 Oxygen Delivery Method 03/19/24 21:01 03/19/24 21:15 03/19/24 21:15 Pulse Rate 53 L 55 L Respiratory Rate 17 24 Blood Pressure 164/68 H Pulse Oximetry 99 94 Oxygen Delivery Method Room Air Room Air 03/19/24 21:30 03/19/24 21:30 03/19/24 21:45 Pulse Rate 55 L 78 Respiratory Rate 15 Blood Pressure 156/72 H Pulse Oximetry 97 Oxygen Delivery Method Room Air 03/19/24 21:45 Pulse Rate Respiratory Rate Blood Pressure 131/59 L Pulse Oximetry Oxygen Delivery Method Medical Decision Making <Nathaly Guerrero, DO - Last Filed: 03/20/24 07:10> Lab Data 03/19/24 16:31 03/19/24 16:31 Labs: Lab Results 03/19/24 03/19/24 Range/Units 16:31 17:38 WBC 3.0 L (4.5-11.0) X10^3/uL RBC 3.59 L (4.0-5.2) X10^6/uL Hgb 12.1 (12.0-16.0) g/dL Hct 36.3 (36-46) % MCV 100.8 H (80-100) fL MCH 33.7 (26-34) PG MCHC 33.4 (30-36) % RDW 14.7 (11.6-14.8) % Plt Count 75 L (150-400) X10^3/uL Neut % (Auto) 73.3 (50-75) % Lymph % (Auto) 15.4 L (25-40) % Gray % (Auto) 9.5 (3-14) % Eos % (Auto) 0.1 L (2-4) % Baso % (Auto) 1.7 (0-2) % Neut # (Auto) 2200 (7516-0823) /uL Lymph # (Auto) 500 L (3506-3163) /uL Gray # (Auto) 300 (0-900) /uL Eos # (Auto) 0 (0-450) /uL Baso # (Auto) 0 (0-100) /uL PT 12.6 H (9.4-12.5) SECONDS INR 1.1 (0.9-1.3) APTT 38 H (25.1-36.5) SECONDS Sodium 134 L (137-145) mmol/L Potassium 3.8 (3.4-5.1) mmol/L Chloride 96 L (98-107) mmol/L Carbon Dioxide 31 (22-32) mmol/L BUN 26 H (7-17) mg/dL Creatinine 2.75 H (0.52-1.04) mg/dL Estimated GFR 17 L (>60) mL/min BUN/Creatinine Ratio 9.5 (6-22) Glucose 100 (80-110) mg/dL Calcium 9.9 (8.4-10.2) mg/dL Magnesium 2.1 (1.6-2.3) mg/dL Total Bilirubin 0.8 (0.2-1.3) mg/dL AST 31 (14-36) IU/L ALT 19 (<35) IU/L Alkaline Phosphatase 97 (38-126) U/L Total Creatine Kinase 110 (30-135) U/L Troponin I 0.032 (0.01-0.034) ng/mL NT-Pro-B Natriuret Pep 67902 H (<450) pg/mL Total Protein 6.8 (6.3-8.2) g/dL Albumin 4.3 (3.5-5.0) g/dL Globulin 2.5 (1.7-4.1) g/dL Albumin/Globulin Ratio 1.7 (1.0-2.8) Lipase 39 (23-300) U/L Urine RBC 0-1/hpf (0-5/HPF) Urine WBC None seen (0-5/HPF) Ur Squamous Epith Cells None seen (0-5/HPF) Urine Bacteria None seen (None) Ur Culture Indicated? Cult not indicated Vol Urine Centrifuged 10ml (spun) Urine Dip Bedside Urine Glucose Negative Bedside Urine Bilirubin - Negative Bedside Urine Ketone - Negative Urine Specific [place] 1.010 Bedside Urine Occult Blood + Bedside Urine pH 8.0 Bedside Urine Protein ++ 100 Bedside Urine Urobilinogen - Negative Bedside Urine Nitrite - Negative Bedside Urine Leukocytes - Negative Esterase Point of care testing: Urine Dip Bedside Urine Glucose Negative Bedside Urine Bilirubin - Negative Bedside Urine Ketone - Negative Urine Specific [place] 1.010 Bedside Urine Occult Blood + Bedside Urine pH 8.0 Bedside Urine Protein ++ 100 Bedside Urine Urobilinogen - Negative Bedside Urine Nitrite - Negative Bedside Urine Leukocytes - Negative Esterase ECG Data Attestation: I personally reviewed and interpreted this ECG as follows: Prior ECG tracings: not available for review Interpretation: Sinus bradycardia first-degree AV block rate of 56 IN 246 QRS of 114 QTC 461. Left axis deviation. No acute ST elevation, T-waves inverted in V1 V2. No prior for comparison. MDM Narrative Medical decision making narrative: Labs show white count of 3 hemoglobin of 12.1, platelets of 75, consistent with patient's priors from 2021. Sodium of 130 potassium 3.8 chloride 96 CO2 of 31 BUN 26 creatinine of 2.75 glucose of 100, LFTs are negative, troponin is 0.032, BNP is 24,[address] shows no acute change cerebral volume loss for age with resultant ventricular and sulcal prominence. Periventricular and deep white matter chronic small vessel ischemic changes. Intracranial internal carotid artery atherosclerosis. Chest x-ray, diffuse thickening interstitial markings, small retrocardiac retrocardiac consolidation, possible trace right pleural effusion, no pneumothorax. EKG shows sinus bradycardia, left axis deviation, nonspecific change. Urine Patient given dose of IV hydralazine, patient had minimal change to 230/80. Spoke with Dr. Cheng, nephrology covering for patient's target aircraft controller Dr. Almanza. He is familiar with the patient. States they have been trying to optimize her blood pressure medications. At this time he recommends nicardipine drip, observation in the ICU overnight and plan for dialysis tomorrow. Spoke with patient she was agreeable with transfer. Nicardipine drip started. Patient signed out to Dr. Lazo while awaiting potential transfer. Calls out to [facility] currently. 730pm discussed with Dr. Mera, accepting physician at [facility]. Patient will be transferred to [facility] ICU with anticipation of dialysis in the morning, continued nicardipine drip with goal of systolic pressures in the 160- 180 range. Patient remains asymptomatic at this time. She is updated on plans and findings. <Zeny Lazo MD - Last Filed: 03/19/24 23:28> Lab Data Labs: Lab Results 03/19/24 03/19/24 Range/Units 16:31 17:38 WBC 3.0 L (4.5-11.0) X10^3/uL RBC 3.59 L (4.0-5.2) X10^6/uL Hgb 12.1 (12.0-16.0) g/dL Hct 36.3 (36-46) % MCV 100.8 H (80-100) fL MCH 33.7 (26-34) PG MCHC 33.4 (30-36) % RDW 14.7 (11.6-14.8) % Plt Count 75 L (150-400) X10^3/uL Neut % (Auto) 73.3 (50-75) % Lymph % (Auto) 15.4 L (25-40) % Gray % (Auto) 9.5 (3-14) % Eos % (Auto) 0.1 L (2-4) % Baso % (Auto) 1.7 (0-2) % Neut # (Auto) 2200 (6401-0643) /uL Lymph # (Auto) 500 L (2577-8599) /uL Gray # (Auto) 300 (0-900) /uL Eos # (Auto) 0 (0-450) /uL Baso # (Auto) 0 (0-100) /uL PT 12.6 H (9.4-12.5) SECONDS INR 1.1 (0.9-1.3) APTT 38 H (25.1-36.5) SECONDS Sodium 134 L (137-145) mmol/L Potassium 3.8 (3.4-5.1) mmol/L Chloride 96 L (98-107) mmol/L Carbon Dioxide 31 (22-32) mmol/L BUN 26 H (7-17) mg/dL Creatinine 2.75 H (0.52-1.04) mg/dL Estimated GFR 17 L (>60) mL/min BUN/Creatinine Ratio 9.5 (6-22) Glucose 100 (80-110) mg/dL Calcium 9.9 (8.4-10.2) mg/dL Magnesium 2.1 (1.6-2.3) mg/dL Total Bilirubin 0.8 (0.2-1.3) mg/dL AST 31 (14-36) IU/L ALT 19 (<35) IU/L Alkaline Phosphatase 97 (38-126) U/L Total Creatine Kinase 110 (30-135) U/L Troponin I 0.032 (0.01-0.034) ng/mL NT-Pro-B Natriuret Pep 21908 H (<450) pg/mL Total Protein 6.8 (6.3-8.2) g/dL Albumin 4.3 (3.5-5.0) g/dL Globulin 2.5 (1.7-4.1) g/dL Albumin/Globulin Ratio 1.7 (1.0-2.8) Lipase 39 (23-300) U/L Urine RBC 0-1/hpf (0-5/HPF) Urine WBC None seen (0-5/HPF) Ur Squamous Epith Cells None seen (0-5/HPF) Urine Bacteria None seen (None) Ur Culture Indicated? Cult not indicated Vol Urine Centrifuged 10ml (spun) Urine Dip Bedside Urine Glucose Negative Bedside Urine Bilirubin - Negative Bedside Urine Ketone - Negative Urine Specific [place] 1.010 Bedside Urine Occult Blood + Bedside Urine pH 8.0 Bedside Urine Protein ++ 100 Bedside Urine Urobilinogen - Negative Bedside Urine Nitrite - Negative Bedside Urine Leukocytes - Negative Esterase Point of care testing: Urine Dip Bedside Urine Glucose Negative Bedside Urine Bilirubin - Negative Bedside Urine Ketone - Negative Urine Specific [place] 1.010 Bedside Urine Occult Blood + Bedside Urine pH 8.0 Bedside Urine Protein ++ 100 Bedside Urine Urobilinogen - Negative Bedside Urine Nitrite - Negative Bedside Urine Leukocytes - Negative Esterase MDM Narrative Medical decision making narrative: Labs show white count of 3 hemoglobin of 12.1, platelets of 75, consistent with patient's priors from 2021. Sodium of 130 potassium 3.8 chloride 96 CO2 of 31 BUN 26 creatinine of 2.75 glucose of 100, LFTs are negative, troponin is 0.032, BNP is 24,[address] shows no acute change cerebral volume loss for age with resultant ventricular and sulcal prominence. Periventricular and deep white matter chronic small vessel ischemic changes. Intracranial internal carotid artery atherosclerosis. Chest x-ray, diffuse thickening interstitial markings, small retrocardiac retrocardiac consolidation, possible trace right pleural effusion, no pneumothorax. EKG shows sinus bradycardia, left axis deviation, nonspecific change. Urine Patient given dose of IV hydralazine, patient had minimal change to 230/80. Spoke with Dr. Cheng, nephrology covering for patient's target aircraft controller Dr. Reed. He is familiar with the patient. States they have been trying to optimize her blood pressure medications. At this time he recommends nicardipine drip, observation in the ICU overnight and plan for dialysis tomorrow. Spoke with patient she was agreeable with transfer. Nicardipine drip started. Patient signed out to Dr. Lazo while awaiting potential transfer. Calls out to [facility] currently. 730pm [address] with Dr. Mera, accepting physician at [facility]. Patient will be transferred to [facility] ICU with anticipation of dialysis in the morning, continued nicardipine drip with goal of systolic pressures in the 160- 180 range. Patient remains asymptomatic at this time. She is updated on plans and findings. Critical Care Time <Nathaly Guerrero, - Last Filed: 03/20/24 07:10> Critical Care Time Critical Care Time: Yes Total Critical Care Time: 45 Attestation: The high probability of a clinically significant, sudden or life threatening deterioration of the cardiac/nephrology system(s) required my full and direct attention, intervention and personal management. The aggregate critical care time was [--] minutes. This time is in addition to time spent performing reported procedures but includes the following: [x] Data Review and interpretation [x] Patient assessment and monitoring of vital signs [x] Documentation [x] Medication orders and management Discharge Plan Departure Patient Disposition: [facility] Clinical Impression: Hypertensive urgency, ESRD on dialysis Prescriptions: No Action potassium chloride [Klor-Con 10] 10 mEq Tablet Extended Release See Rx Instructions .ROUTE .COMPLEX Rx Instructions: states takes 0.5 tablet BID takes prn when she feels her potasium is low allopurinol 100 mg Tablet 100 mg PO DAILY carvedilol 3.125 mg Tablet See Rx Instructions .ROUTE .COMPLEX Rx Instructions: does not know dosage oxycodone 5 mg Capsule 2.5 mg PO Q6H PRN (Reason: Pain (Scale Score 1-3)) aspirin 81 mg Tablet 81 mg PO DAILY lisinopril 5 mg Tablet See Rx Instructions .ROUTE .COMPLEX Rx Instructions: does not know dosage hydroxychloroquine 200 mg Tablet 200 mg PO BID Referrals: Ray Woods DO [Primary Care Provider] -
[2024-03-19] MEDS: HYDRALAZINE 20 MG/ML VIAL 10 MG IV (17:50)
[2024-03-19 18:37] LABS: Urine Volume 10mL (spun)
[2024-03-19 18:38] LABS: Bacteria Urine None Seen; Culture Indicated Urine Cult Not Indicated; RBC Urine 0-1/HPF (0-5/HPF); Squamous Epithelial Cell Urine None Seen (0-5/HPF); WBC Urine None Seen (0-5/HPF)
[2024-03-19] MEDS: NICARDIPINE 25 MG in SODIUM CHLORIDE 0.9% 240 ML 50 MG IV (19:24)
[2024-03-19] MEDS: OXYCODONE IR 5 MG TABLET 2.5 MG PO (20:02)
== END 2024-03-19 22:00 | disposition short-term general hospital (02) ==
PROVIDERS: Emergency Medicine; Emergency Provider Emergency Medicine; Family Provider Internal Medicine; PCP Family Medicine
DX: I16.0 Hypertensive urgency (principal); N18.6 End stage renal disease; Z99.2 Dependence on renal dialysis; R00.1 Bradycardia, unspecified; I44.0 Atrioventricular block, first degree; Z79.899 Other long term (current) drug therapy
CPT/HCPCS: 36415; 70450; 71045; 80053; 81003; 81015; 82550; 83690; 83735; 83880; 84484; 85025; 85610; 85730; 93005; 96365; 96375; 99284; J0360